=== PATIENT | female | born 1990 | race African-American/Black ===

== ENCOUNTER → 2016-05-18 | Day surgery (SDC) | payer BC ==
[~2016-05-18] VITALS: Ht 175.3 cm; Wt 107.4 kg
[~2016-05-18] MED LIST: *ONDANSETRON 4 MG VIAL PERIprocedural Use ONLY ONE; *PROMETHAZINE 25 MG/ML VIAL PERIprocedural use ONLY ONE; *morphine SULFATE 8 MG/ML PERIprocedure ONLY ONE; DEXAMETHASONE SOD PHOS 4 MG/ML VIAL ONE; DO NOT ADM ANY ANTICOAGULANT DRUGS XX PRN; FAMOTIDINE 20 MG/2 ML VIAL ONE; HYDR-3516 PO; HYDROmorphone HCL PF 1 MG/ML VIAL IVP PRN; IBUPROFEN 600 MG TAB PO PRN; INSULIN HUMAN REGULAR 1,000 UNITS/10 ML VIAL SQ PRN; KETOROLAC TROMETHAMINE 30 MG/ML (IVP) VIAL IVP PRN; LACTATED RINGER'S 1000 ML INJ 1,000 ML IV SCH; LACTATED RINGER'S 1000 ML IV SCH; LORazepam 0.5 MG TAB PO PRN; METHYLERGONOVINE MALEATE 0.2 MG/ML VIAL IM ONE; METOCLOPRAMIDE HCL 10 MG/2 ML VIAL ONE; METOPROLOL TARTRATE 25 MG TAB PO PRN; MIDAZOLAM HCL 2 MG/2 ML VIAL ONE; ONDANSETRON HCL 4 MG/2 ML VIAL IV PUSH ONE; ONDANSETRON HCL 4 MG/2 ML VIAL IVP PRN; ONDANSETRON HCL 4 MG/2 ML VIAL ONE; OXYTOCIN 10 UNIT/ML AMP ONE; PROMETHAZINE INJ 25 MG/ML VIAL IM PRN; PROPOFOL 200 MG/20 ML AMP IV ONE; SODIUM CHLORID 0.9% 500 ML IV SCH; SODIUM CHLORIDE 0.9% FLUSH 5 ML FLUSH FLUSH PRN; SODIUM CHLORIDE 0.9% FLUSH 5 ML FLUSH FLUSH SCH; ceFAZolin 2 GM PREMIX 50 ML IV SCH; diphenhydrAMINE HCL 25 MG CAP PO PRN; oxyCODONE/ACETAMINOPHEN 5 MG/325 MG TAB PO PRN
[2016-05-18 09:14] VITALS: BP 134/80; PULSE 76; RESP 16; TEMP 98.6; O2SAT 100
[2016-05-18 09:59] LABS: AUTOMATED NEUTROPHIL # 3.2 TH/MM3 (1.8-7.7); BASOPHIL % 0.4 % (0.0-2.0); EOSINOPHIL % 0.3 % (0.0-4.0); HEMATOCRIT 36.2 % (35.0-46.0); HEMO FLAGS DIFF FINAL; LYMPH % 28.9 % (9.0-44.0); LYMPHOCYTE # 1.6 TH/MM3 (1.0-4.8); MEAN CELL VOLUME 82.1 FL (80.0-100.0); MEAN CORPUSCULAR HEMOGLOBIN 27.2 PG (27.0-34.0); MEAN CORPUSCULAR HGB CONC 33.1 % (32.0-36.0); MONO % 9.9 % (0.0-8.0); NEUT % 60.5 % (16.0-70.0); PLATELET COUNT 212 TH/MM3 (150-450); RED CELL DISTRIBUTION WIDTH 14.5 % (11.6-17.2); WHITE BLOOD COUNT 5.4 TH/MM3 (4.0-11.0)
[2016-05-18 13:09] VITALS: BP 116/65; PULSE 87; RESP 18; TEMP 97.6; O2SAT 100
--- NOTE | 2016-05-19 13:36 | MP ---
cc: TOM ALONZO M.D.,HIREN Lema M.D. DATE OF PROCEDURE 05/18/2016 PREOPERATIVE DIAGNOSES 1. Patient with missed at 8 weeks gestation. 2. History of recurrent loss, miscarriage. PROCEDURE D&C with suction. POSTOPERATIVE DIAGNOSES 1. Patient with missed at 8 weeks gestation. 2. History of recurrent loss, miscarriage. MATERNAL BLOOD TYPE O-positive. ANESTHESIA General with LMA. ESTIMATED BLOOD LOSS 50 cc. PATHOLOGY SPECIMEN Products of conception. INDICATIONS FOR PROCEDURE Patient with known documented intrauterine that failed to progress. The patient was approximately 8 weeks. The patient elected for D&C with suction. The patient's maternal blood type is O-positive. PROCEDURE The patient received Ancef 2 grams prior to the procedure. She underwent general anesthesia with LMA placement. She was carefully positioned in dorsal lithotomy position using candy-cane stirrups. She had appropriate padding for her lower extremities, she had sequentials placed on lower extremities for VTE prophylaxis. She was prepped and draped, a time-out was conducted and agreed by all present in the room. Simple bivalve retractor was used to examine the cervix which was midline. No active bleeding was noted. The uterus was retroverted, measuring about 8 cm. The cervix was then dilated to accommodate a #10 curved curette. The curette was used on a suction canister device and evacuation of the endometrial cavity. Complete removal of tissue was noted. A simple handheld curette was used to confirm evacuation of the contents. The patient received Methergine 0.2 mg IM at the completion of the procedure. Blood loss was minimal. At the completion of the case final count was correct. The patient was stable. She was taken to the recovery room on room air. MD DEAN Valencia/VIVEK /11:50 AM /1:24 PM
== END | disposition home or self-care (01) ==
LOC: HSDC 08:11
PROVIDERS: ATTEND Obstetrics & Gynecology
DX: O02.1 Missed abortion (principal)
CPT/HCPCS: 01965; 59820; 85025; 86850; 86900; 86901; 88305; J0690; J1100; J1885; J2210; J2250; J2270; J2405; J2550; J2765; J3010; J7120; J2590

== ENCOUNTER 2017-08-09 18:05 | Emergency (ER) | payer BC ==
[~2017-08-09] VITALS: Ht 175.3 cm; Wt 110.0 kg
[~2017-08-09 18:05] MED LIST changes: -*ONDANSETRON 4 MG VIAL PERIprocedural Use ONLY ONE; -*PROMETHAZINE 25 MG/ML VIAL PERIprocedural use ONLY ONE; -*morphine SULFATE 8 MG/ML PERIprocedure ONLY ONE; -DEXAMETHASONE SOD PHOS 4 MG/ML VIAL ONE; -DO NOT ADM ANY ANTICOAGULANT DRUGS XX PRN; -FAMOTIDINE 20 MG/2 ML VIAL ONE; -HYDROmorphone HCL PF 1 MG/ML VIAL IVP PRN; -IBUPROFEN 600 MG TAB PO PRN; -INSULIN HUMAN REGULAR 1,000 UNITS/10 ML VIAL SQ PRN; -KETOROLAC TROMETHAMINE 30 MG/ML (IVP) VIAL IVP PRN; -LACTATED RINGER'S 1000 ML INJ 1,000 ML IV SCH; -LACTATED RINGER'S 1000 ML IV SCH; -LORazepam 0.5 MG TAB PO PRN; -METHYLERGONOVINE MALEATE 0.2 MG/ML VIAL IM ONE; -METOCLOPRAMIDE HCL 10 MG/2 ML VIAL ONE; -METOPROLOL TARTRATE 25 MG TAB PO PRN; -MIDAZOLAM HCL 2 MG/2 ML VIAL ONE; -ONDANSETRON HCL 4 MG/2 ML VIAL IV PUSH ONE; -ONDANSETRON HCL 4 MG/2 ML VIAL IVP PRN; -ONDANSETRON HCL 4 MG/2 ML VIAL ONE; -OXYTOCIN 10 UNIT/ML AMP ONE; -PROMETHAZINE INJ 25 MG/ML VIAL IM PRN; -PROPOFOL 200 MG/20 ML AMP IV ONE; -SODIUM CHLORID 0.9% 500 ML IV SCH; -SODIUM CHLORIDE 0.9% FLUSH 5 ML FLUSH FLUSH PRN; -SODIUM CHLORIDE 0.9% FLUSH 5 ML FLUSH FLUSH SCH; -ceFAZolin 2 GM PREMIX 50 ML IV SCH; -diphenhydrAMINE HCL 25 MG CAP PO PRN; -oxyCODONE/ACETAMINOPHEN 5 MG/325 MG TAB PO PRN
[2017-08-09 18:23] VITALS: BP 133/89; PULSE 110; RESP 16; TEMP 99; O2SAT 100
[2017-08-09] MEDS ORDERED: SODIUM CHLOR 0.9% 1000 ML INJ 1,000 ML IV ONE (20:45)
[2017-08-09] MEDS ORDERED: METOCLOPRAMIDE INJ 10 MG in SODIUM CHLORIDE 0.9% INJ 50 ML IV ONE (20:45)
--- NOTE | 2017-08-09 21:02 | PD ---
HPI Chief Complaint: Related Problem Time Seen by Provider: 20:19 Travel History International Travel<30 days: No Contact w/Intl Traveler<30days: No Traveled to known affect area: No History of Present Illness HPI 27yo F who is and 7weeks presents to the ED with c/o nausea and vomiting. Pt said she called Dr. Lance and was told to come to the ED for IVF. Pt has been vomiting her whole and is on lovenox and progesterone because she had multiple miscarriages and had work up that she has something that increase her chance of blood clot. Pt denies any fever, chest pain, sob, abdominal pain, dysuria, hematuria, vaginal bleeding, focal weakness or numbness. Pt is on phenergan for nausea and last dose was yesterday. Pt had US this that showed intrauterine at 5weeks. PFSH Past Medical History Cancer: No Cardiovascular Problems: No Diabetes: No Endocrine: No Genitourinary: No Hepatitis: No Hiatal Hernia: No Immune Disorder: No Musculoskeletal: No Neurologic: No Psychiatric: No Reproductive: No Respiratory: No Thyroid Disease: No ?: Past Surgical History AICD: No Body Medical Devices: NONE PER PT Gynecologic Surgery: Yes (D/C) Joint Replacement: No Pacemaker: No Social History Alcohol Use: No Tobacco Use: No Substance Use: No Allergies-Medications (Allergen,Severity, Reaction): Coded Allergies: No Known Allergies (Unverified , 05/18/16) Reported Meds & Prescriptions Reported Meds & Active Scripts Active Reported Hydrocodone-Acetaminophen 5-325 mg Tab 1 Tab PO Q4H PRN Review of Systems Except as stated in HPI: all other systems reviewed are Neg Physical Exam Narrative GENERAL: 27yo F not in distress. SKIN: Focused skin assessment warm/dry. HEAD: Atraumatic. Normocephalic. EYES: Pupils equal and round. No scleral icterus. No injection or drainage. ENT: No nasal bleeding or discharge. Mucous membranes pink and moist. NECK: Trachea midline. No JVD. CARDIOVASCULAR: Regular rate and rhythm. No murmur appreciated. RESPIRATORY: No accessory muscle use. Clear to auscultation. Breath sounds equal bilaterally. GASTROINTESTINAL: Abdomen soft, non-tender, nondistended. No rebound tenderness or guarding. MUSCULOSKELETAL: No obvious deformities. No clubbing. No cyanosis. No edema. NEUROLOGICAL: Awake and alert. No obvious cranial nerve deficits. Motor grossly within normal limits. Normal speech. PSYCHIATRIC: Appropriate mood and affect; insight and judgment normal. Data Data Last Documented VS Vital Signs Date Time Temp Pulse Resp B/P (MAP) Pulse Ox O2 Delivery O2 Flow Rate FiO2 08/09/17 22:27 90 08/09/17 18:23 99.0 16 133/89 (104) 100 Orders Orders Basic Metabolic Panel (Bmp) (08/09/17 20:38) Urinalysis - C+S If Indicated (08/09/17 20:38) Ed Poc Ultrasound (08/09/17 ) Metoclopramide Inj (Reglan Inj) (08/09/17 20:45) Sodium Chlor 0.9% 1000 Ml Inj (Ns 1000 M (08/09/17 20:45) Ed Poc Ultrasound (08/09/17 ) Labs Laboratory Tests Test 08/09/17 21:00 08/09/17 21:20 Blood Urea Nitrogen 8 MG/DL Creatinine 0.86 MG/DL Random Glucose 86 MG/DL Calcium Level 9.2 MG/DL Sodium Level 139 MEQ/L Potassium Level 3.8 MEQ/L Chloride Level 104 MEQ/L Carbon Dioxide Level 24.3 MEQ/L Anion Gap 11 MEQ/L Estimat Glomerular Filtration Rate 94 ML/MIN Urine Color YELLOW Urine Turbidity CLEAR Urine pH 5.5 Urine Specific [place] 1.036 Urine Protein 30 mg/dL Urine Glucose (UA) NEG mg/dL Urine Ketones TRACE mg/dL Urine Occult Blood NEG Urine Nitrite NEG Urine Bilirubin NEG Urine Urobilinogen LESS THAN 2.0 MG/DL Urine Leukocyte Esterase NEG Urine WBC 5 /hpf Urine Squamous Epithelial Cells <1 /hpf Urine Mucus MANY /lpf Microscopic Urinalysis Comment CULT NOT INDICATED MDM Medical Decision Making Medical Screen Exam Complete: Yes Emergency Medical Condition: Yes Differential Diagnosis Hyperemesis gravidarum vs. UTI vs. dehydration vs. electrolyte abnormality Narrative Course 27yo F sent here by OBGYN for IV hydration after she complained of persistent nausea dn vomiting. Pt is well appearing and has no abdominal pain. BMP reviewed, unremarkable. UA showed trace ketones. Negative leukocyte. WBC 5. Culture not indicated. Pt given reglan and NS IVF. Pt reevaluated at bedside and feels better. Pt is now tolerating PO. Pt already has phenergan at home and prefers that so will have pt continue taking it. Procedures Procedure Narrative Emergency Department Pelvic ultrasound was performed with patient consent. The curvilinear probe was used in the transverse and sagittal views within the suprapubic region revealing single intrauterine . heart rate was 169bpm. Diagnosis Primary Impression: Vomiting affecting Patient Instructions: General Instructions Departure Forms: Tests/Procedures Additional Instructions: Please follow up with your OBGYN in 1-2 days. Return to the ED if symptoms worsen. Med/Other Pt SpecificInfo: No Change to Meds Disposition: 01 DISCHARGE HOME Condition: Stable BedollaReginaMonica DO August 09, 2017 21:02
[2017-08-09 21:37] LABS: BILIRUBIN, URINE NEG (NEG); BLOOD, URINE NEG (NEG); GLUCOSE,URINE NEG (NEG); KETONE, URINE TRACE mg/dL (NEG); MUCUS URINE MANY /lpf (OCC); NITRITE,URINE NEG (NEG); PH, URINE 5.5 (5.0-8.5); SQUAMOUS EPITHELIAL CELL URINE <1 /hpf (0-5); URINE COLOR YELLOW (YELLW/STRAW); URINE LEUKOCYTE ESTERASE NEG (NEG)
[2017-08-09 21:38] LABS: BICARBONATE 24.3 MEQ/L (21.0-32.0); CALCIUM 9.2 MG/DL (8.5-10.1); CREATININE 0.86 MG/DL (0.50-1.00)
[2017-08-09 22:27] VITALS: PULSE 90
== END 2017-08-09 23:25 | disposition home or self-care (01) ==
LOC: NEPD 18:05
DX: O21.9 Vomiting of pregnancy, unspecified (principal); Z3A.01 Less than 8 weeks gestation of pregnancy
CPT/HCPCS: 80048; 81001; 96374; 99283; J2765; J7030

== ENCOUNTER 2017-08-17 12:01 | Emergency (ER) | payer BC ==
[2017-08-17 12:08] VITALS: BP 157/78; PULSE 95; RESP 18; TEMP 99; O2SAT 99
[2017-08-17] MEDS ORDERED: SODIUM CHLOR 0.9% 1000 ML INJ 1,000 ML IV SCH (13:22)
[2017-08-17] MEDS ORDERED: SODIUM CHLORIDE 0.9% FLUSH 10 ML FLUSH IV FLUSH PRN (13:30)
--- NOTE | 2017-08-17 14:10 | PD ---
HPI Chief Complaint: GI Complaint Time Seen by Provider: 13:22 Travel History International Travel<30 days: No Contact w/Intl Traveler<30days: No Traveled to known affect area: No History of Present Illness HPI 27-year-old proximally 9-1/2 weeks female presents the ED for evaluation of nausea and vomiting. Sustained during the course of her . Patient states that she has been taking Phenergan at home but has been unable to keep anything down. She spoke to her cylinder filler who was concerned for dehydration and sent her to the emergency room. She is taking Phenergan at home, last dose yesterday. She denies any abdominal pain, vaginal bleeding or vaginal discharge. She had outpatient ultrasound 2 days ago that revealed intrauterine , active with a heartbeat in the 170s. She is taking progesterone and Lovenox due to multiple miscarriages. She states that she had lab work that showed "increased risk of blood clot." She is followed by Dr. Lance. [facility] Past Medical History Cancer: No Cardiovascular Problems: No Diabetes: No Diminished Hearing: No Endocrine: No Genitourinary: No Hepatitis: No Hiatal Hernia: No Immune Disorder: No Musculoskeletal: No Neurologic: No Psychiatric: No Reproductive: No Respiratory: No Thyroid Disease: No ?: Para: 4 Miscarriage: 3 Past Surgical History AICD: No Body Medical Devices: NONE PER PT Gynecologic Surgery: Yes (D/C) Joint Replacement: No Pacemaker: No Other Surgery: Yes Social History Alcohol Use: No Tobacco Use: No Substance Use: No Allergies-Medications (Allergen,Severity, Reaction): Coded Allergies: No Known Allergies (Verified Adverse Reaction, Unknown, 08/17/17) Reported Meds & Prescriptions Reported Meds & Active Scripts Active Reported Hydrocodone-Acetaminophen 5-325 mg Tab 1 Tab PO Q4H PRN Review of Systems Except as stated in HPI: all other systems reviewed are Neg Physical Exam Narrative GENERAL: Well-nourished, well-developed nontoxic-appearing -[place] female no acute distress.. SKIN: Focused skin assessment warm/dry. Mucous membranes moist. HEAD: Normocephalic. EYES: No scleral icterus. No injection or drainage. NECK: Supple, trachea midline. No JVD or lymphadenopathy. CARDIOVASCULAR: Regular rate and rhythm without murmurs, gallops, or rubs. RESPIRATORY: Breath sounds clear and equal bilaterally. No accessory muscle use. GASTROINTESTINAL: Abdomen soft, non-tender, nondistended. Active bowel sounds. MUSCULOSKELETAL: No cyanosis, or edema. BACK: Nontender without obvious deformity. No CVA tenderness. Data Data Last Documented VS Vital Signs Date Time Temp Pulse Resp B/P (MAP) Pulse Ox O2 Delivery O2 Flow Rate FiO2 08/17/17 17:11 08/17/17 15:18 90 18 99 Room Air 08/17/17 12:08 99.0 Orders Orders Basic Metabolic Panel (Bmp) (08/17/17 13:22) Complete Blood Count With Diff (08/17/17 13:22) Urinalysis - C+S If Indicated (08/17/17 13:22) Iv Access Insert/Monitor (08/17/17 13:22) Ecg Monitoring (08/17/17 13:22) Oximetry (08/17/17 13:22) Sodium Chlor 0.9% 1000 Ml Inj (Ns 1000 M (08/17/17 13:22) Sodium Chloride 0.9% Flush (Ns Flush) (08/17/17 13:30) Promethazine (Phenergan) (08/17/17 14:15) Coag Profile (08/17/17 14:35) Heart Tones (08/17/17 14:44) Ed Poc Ultrasound (08/17/17 ) Ed Discharge Order (08/17/17 16:49) Labs Laboratory Tests Test 08/17/17 14:00 08/17/17 15:50 White Blood Count 8.5 TH/MM3 Red Blood Count 4.84 MIL/MM3 Hemoglobin 13.5 GM/DL Hematocrit 41.3 % Mean Corpuscular Volume 85.4 FL Mean Corpuscular Hemoglobin 27.9 PG Mean Corpuscular Hemoglobin Concent 32.7 % Red Cell Distribution Width 13.9 % Platelet Count 233 TH/MM3 Mean Platelet Volume 8.6 FL Neutrophils (%) (Auto) 70.9 % Lymphocytes (%) (Auto) 21.8 % Monocytes (%) (Auto) 6.9 % Eosinophils (%) (Auto) 0.1 % Basophils (%) (Auto) 0.3 % Neutrophils # (Auto) 6.0 TH/MM3 Lymphocytes # (Auto) 1.8 TH/MM3 Monocytes # (Auto) 0.6 TH/MM3 Eosinophils # (Auto) 0.0 TH/MM3 Basophils # (Auto) 0.0 TH/MM3 CBC Comment DIFF FINAL Differential Comment Blood Urea Nitrogen 7 MG/DL Creatinine 0.68 MG/DL Random Glucose 81 MG/DL Calcium Level 8.6 MG/DL Sodium Level 137 MEQ/L Potassium Level 3.7 MEQ/L Chloride Level 104 MEQ/L Carbon Dioxide Level 21.6 MEQ/L Anion Gap 11 MEQ/L Estimat Glomerular Filtration Rate 124 ML/MIN Prothrombin Time 10.7 SEC Prothromb Time International Ratio 1.1 RATIO Activated Partial Thromboplast Time 25.3 SEC Urine Color YELLOW Urine Turbidity CLEAR Urine pH 5.5 Urine Specific [place] 1.036 Urine Protein 30 mg/dL Urine Glucose (UA) NEG mg/dL Urine Ketones 150 mg/dL Urine Occult Blood NEG Urine Nitrite NEG Urine Bilirubin NEG Urine Urobilinogen 2.0 MG/DL Urine Leukocyte Esterase NEG Urine RBC LESS THAN 1 /hpf Urine WBC 2 /hpf Urine Squamous Epithelial Cells 1 /hpf Urine Mucus MANY /lpf Microscopic Urinalysis Comment CULT NOT INDICATED MDM Medical Decision Making Medical Screen Exam Complete: Yes Emergency Medical Condition: Yes Differential Diagnosis Dehydration versus metabolic derangement versus hyper emesis gravidarum versus vomiting in versus other Narrative Course 27-year-old proximally 9-1/2 weeks female presents the ED for evaluation of nausea and vomiting. Sustained during the course of her . She spoke to her cylinder filler who was concerned for dehydration and sent her to the emergency room. She is taking Phenergan at home, last dose yesterday. She denies any abdominal pain, vaginal bleeding or vaginal discharge. She is taking progesterone and Lovenox due to multiple miscarriages. She states that she had lab work that showed "increased risk of blood clot." She is followed by Dr. Lance. Vitals reviewed. On exam this is a nontoxic-appearing -[place] female no acute distress. Physical exam is unremarkable. Bedside ultrasound reveals single intrauterine with heart rate of 174. IV was established. 1 L normal saline and Phenergan were ordered. Prior to this patient was noted to be eating [place]an fries in the exam room with her . CBC, CMP, coags and UA all without concerning abnormalities. On recheck patient reports improvement of her symptoms. She is instructed to follow-up with her cylinder filler. She is agreeable to care plan. She is stable and discharged home. Procedures Procedure Narrative Emergency Department Pelvic ultrasound was performed with patient consent. The curvilinear probe was used in the transverse and sagittal views within the suprapubic region revealing single intrauterine . heart rate was 174. Diagnosis Primary Impression: Vomiting affecting Referrals: Sericulturist Additional Instructions: Continue at home medications as previously prescribed. Follow up with your cylinder filler next week. Return to the ED for worsening symptoms or any urgent or emergent medical condition. Disposition: 01 DISCHARGE HOME Condition: Stable Vianey Santana August 17, 2017 14:10
[2017-08-17] MEDS ORDERED: PROMETHAZINE HCL 25 MG TAB PO ONE (14:15)
[2017-08-17 14:45] LABS: BASOPHIL % 0.3 % (0.0-2.0); EOSINOPHIL % 0.1 % (0.0-4.0); HEMATOCRIT 41.3 % (35.0-46.0); HEMOGLOBIN 13.5 GM/DL (11.6-15.3); LYMPH % 21.8 % (9.0-44.0); LYMPHOCYTE # 1.8 TH/MM3 (1.0-4.8); MEAN CELL VOLUME 85.4 FL (80.0-100.0); MEAN CORPUSCULAR HEMOGLOBIN 27.9 PG (27.0-34.0); MEAN CORPUSCULAR HGB CONC 32.7 % (32.0-36.0); MEAN PLATELET VOLUME 8.6 FL (7.0-11.0); MONO % 6.9 % (0.0-8.0); MONOCYTE # 0.6 TH/MM3 (0-0.9); NEUT % 70.9 % (16.0-70.0); PLATELET COUNT 233 TH/MM3 (150-450); RED BLOOD COUNT 4.84 MIL/MM3 (4.00-5.30); RED CELL DISTRIBUTION WIDTH 13.9 % (11.6-17.2); WHITE BLOOD COUNT 8.5 TH/MM3 (4.0-11.0)
[2017-08-17 14:56] LABS: BICARBONATE 21.6 MEQ/L (21.0-32.0); CALCIUM 8.6 MG/DL (8.5-10.1); CREATININE 0.68 MG/DL (0.50-1.00)
[2017-08-17 15:18] VITALS: BP 150/70; PULSE 90; RESP 18; O2SAT 99
[2017-08-17 16:40] LABS: BILIRUBIN, URINE NEG (NEG); BLOOD, URINE NEG (NEG); GLUCOSE,URINE NEG (NEG); KETONE, URINE 150 mg/dL (NEG); MUCUS URINE MANY /lpf (OCC); NITRITE,URINE NEG (NEG); PH, URINE 5.5 (5.0-8.5); SQUAMOUS EPITHELIAL CELL URINE 1 /hpf (0-5); URINE COLOR YELLOW (YELLW/STRAW); URINE LEUKOCYTE ESTERASE NEG (NEG)
[2017-08-17 16:43] LABS: INTERNATIONAL NORMALIZED RATIO 1.1 RATIO; PROTHROMBIN TIME - PATIENT 10.7 SEC (9.8-11.6)
== END 2017-08-17 17:17 | disposition home or self-care (01) ==
LOC: NEPD 12:01
DX: O21.9 Vomiting of pregnancy, unspecified (principal); Z3A.09 9 weeks gestation of pregnancy
CPT/HCPCS: 80048; 81001; 85025; 85610; 85730; 96360; 99284; J7030; Q0169

== ENCOUNTER 2018-03-13 07:59 | Inpatient (IN) ==
--- NOTE | 2018-03-13 08:41 | P.OBGPN ---
S: Doing well, no pain, denies headaches, blurry vision, epigastric pain or right upper quadrant pain O: : Cervix 4-5 cm, 50% effaced, -3 station FHTs: 140s, moderate variability, accelerations TOCO: No contractions noted A/P: 27-year-old at 39 weeks and 0 days for induction of labor secondary to elevated blood pressures at term 1. IUP: cat 1 tracing - cephalic by exam, EFW 7.5lbs, female fetus "Journi" - GBS POS 2. IOL: Secondary to #3, phthisis or favorable, begin Pitocin, AROM later. Anticipate 3. CHTN / new elevated blood pressures: Mild range and office yesterday, mild range this morning, no signs or symptoms of preeclampsia, will collect HELLP labs and P: C ratio, continue to try blood pressures. Will mag if develops severe features. - Patient states was diagnosed with chronic hypertension many years ago and has been off medication after weight loss and exercise for several years. BPs all this until yesterday have been normal 4. GBS POS: begin penicillin for prophylaxis.
[2018-03-13] MEDS ORDERED: Penicillin G Potassium Inj 5,000,000 UNIT in Sodium Chloride 0.9% Inj 100 ML IV.SIG ONE (08:46)
[2018-03-13] MEDS ORDERED: Sodium Chlor 0.9% Inj 500 ML IV.SIG PRN (08:46)
[2018-03-13] MEDS ORDERED: Oxytocin 30 Units/500ml Premix 30 UNITS/500 ML BAG IV.SIG ONE (08:46)
[2018-03-13] MEDS ORDERED: Naloxone Inj 0.4 MG/ML Vial IV.PUSH PRN ×2 (08:46→16:01)
[2018-03-13] MEDS ORDERED: fentaNYL Citrate Inj 100 MCG/2 ML Ampul IV.PUSH PRN ×2 (08:46)
[2018-03-13] MEDS ORDERED: Oxytocin 30 Units/500ml Premix 30 UNITS/500 ML BAG IV.SIG PRN (08:46)
[2018-03-13] MEDS ORDERED: Sod Chloride 0.9% Inj 1,000 ML IV.CONT PRN (08:46)
[2018-03-13] MEDS ORDERED: Citric Acid/Sodium Citrate Liq 30 ML UDC PO SCH (09:00)
[2018-03-13 09:21] LABS: Baso % (Auto) 0.2 % (0.0-2.0); Eos % (Auto) 0.4 % (0.0-4.0); Hematocrit 33.7 % (35.0-46.0); Hemoglobin 11.1 gm/dL (11.6-15.3); Lymph # (Auto) 1.7 th/mm3 (1.0-4.8); Lymph % (Auto) 18.7 % (9.0-44.0); Mean Corpuscular HGB Conc 32.8 % (32.0-36.0); Mean Corpuscular Hemoglobin 26.8 pg (27.0-34.0); Mean Corpuscular Volume 81.7 fL (80.0-100.0); Mono # (Auto) 0.9 th/mm3 (0.0-0.9); Mono % (Auto) 9.8 % (0.0-8.0); Neut # (Auto) 6.4 th/mm3 (1.8-7.7); Neut % (Auto) 70.9 % (16.0-70.0); Platelet Count 202 th/mm3 (150-450); Red Blood Count 4.13 mil/mm3 (4.00-5.30); Red Cell Distribution Width 14.7 % (11.6-17.2); White Blood Count 9.1 th/mm3 (4.0-11.0)
[2018-03-13 09:30] LABS: Bilirubin,Urine Negative (Negative); Clarity,Urine Clear (Clear); Color,Urine Yellow (Yellw/Straw); Glucose,Urine (UA) Negative (Negative); Leukocyte Esterase,Urine Negative (Negative); Mucus,Urine Few /lpf (Occasional); Nitrite,Urine Negative (Negative); Specific Gravity,Urine 1.008 (1.002-1.035); Squamous Epithelial Cell,Urine <1 /hpf (0-5)
--- NOTE | 2018-03-13 09:32 | MH ---
cc: Georgian Spence MD DATE OF ADMISSION: 03/13/2018 INDICATION FOR ADMISSION: A 39-week intrauterine with mildly elevated blood pressures, mild headache, 4 cm, admitted for Pitocin and AROM. HISTORY OF PRESENT CONDITION: The patient is a very pleasant 27-year-old, , black female, 4, para 0-0-3-0, with LMP 06/13/2017 and EDC 03/20/2018, currently at 39 and 0/7 weeks. She was seen in the office by me yesterday with a mild headache and blood pressure of 122/88. She was 4 cm, 50% effaced, and -1. Estimated weight is 7 pounds. Pelvis is clinically adequate. She denied nausea, vomiting, blurred vision. She was having good movement. surveillance has been reassuring. She had no leakage or bleeding. care was entirely with Dr. Lance and overall unremarkable. She had several losses prior to this conception. Blood type O positive, hemoglobin 12.3. Pap smear normal. Immune to [place] measles and chickenpox. Serology negative. Thyroid test normal. Her Glucola was unremarkable, but she is group B strep positive FAMILY HISTORY: Noncontributory. SOCIAL HISTORY: She works at [employer] in the [facility]. Does not smoke, drink, or use illicit drugs. PHYSICAL EXAMINATION: GENERAL: She is a well-developed female in no acute distress other than a mild headache. VITAL SIGNS: Her weight is 272. Her blood pressure was 128/88. NECK: She had no thyroid enlargement. LUNGS: Clear. HEART: Regular. PELVIC: Fundus is term. Cervix as described. EXTREMITIES: She had mild edema normal reflexes. IMPRESSION AND PLAN: A 39-week intrauterine with mild elevations in blood pressure, highly favorable Tom score. Plan is to proceed with Pitocin, AROM once penicillin G is in place. Do preeclamptic labs and watch blood pressures. Anticipate vaginal delivery. Both Dr. Elliott and Dr. Lance are aware. Georgina Spence MD PPC/rs , 08:49 AM , 08:59 AM
[2018-03-13 09:35] LABS: Amphetamine Urine With Conf Neg (Neg); Benzodiazepine Urine With Conf Neg (Neg); Cocaine Urine With Conf Neg (Neg); Opiates Urine With Conf Neg (Neg)
[2018-03-13 09:36] LABS: Protein/Creatinine Ratio,Urine 0.13 (0.00-0.14)
[2018-03-13 09:39] LABS: Albumin 2.6 g/dL (3.4-5.0); Anion Gap 9 meq/L (5-15); Aspartate Aminotransferase 22 U/L (15-37); Blood Urea Nitrogen 4 mg/dL (7-18); Calcium 8.3 mg/dL (8.5-10.1); Carbon Dioxide 20.1 meq/L (21.0-32.0); Chloride 109 meq/L (98-107); Glomerular Filtration Rate Greater Than 89 mL/min (>89); Glucose,Random 74 mg/dL (74-106); Potassium 3.5 meq/L (3.5-5.1); Sodium 138 meq/L (136-145)
[2018-03-13 09:40] LABS: Alanine Aminotransferase 20 U/L (10-53)
[2018-03-13 09:42] LABS: Alkaline Phosphatase 207 U/L (45-117); Total Protein 6.8 g/dL (6.4-8.2)
[2018-03-13 09:50] LABS: Cannabinoid Urine With Conf Neg (Neg)
--- NOTE | 2018-03-13 10:25 | P.HPOB ---
History of Present Illness Service: labor and delivery Primary Care Physician: No Primary Care Physician Chief Complaint: labor History of Present Illness: Rin is a 27 year old mbf at 39 and 0/7 weeks gestation s/p episode of bleeding from a LT labial "bump" yesterday. Cervix is noted to be 3-4 cm/50% effaced/-2 station. BP's high with diastolic in the 80's. +1 proteinuria. GFM without bleeding or n/v or discharge. FHR was 160's yesterday. GBS+. Weeks Gestation:: 39 Para: 3 : 4 Last menstrual period: 06/13/17 - Inpatient Certification I certify that the inpatient services were ordered in accordance with Medicare regulations governing the order. This includes certification that hospital inpatient services are reasonable and necessary and in the case of services not specified as inpatient-only under 42 CFR 419.22(n), that they are appropriately provided as inpatient services in accordance to with the 2-midnight benchmark under 43 CFR 412.3(e) Estimated Total Length of Stay (Days): 3 Plans for Post Hospital Care: Home [facility] - Surgical History Surgical History: Surgical History (Last Updated 03/11/18 @ 23:45 by Fred Cortez MD) History of dilation and curettage - Tobacco History Smoking Status: Never smoker - Alcohol History How Often Do You Have a Drink Containing Alcohol: Never - Substance Use History Substance History: No History of Abuse - Travel History History of Recent Travel: No Recent Travel in the [place] Within the Last 8 Weeks: No Recent Travel Out of the Country Within the Last 8 Weeks: No Medications and Allergies Allergies Allergy/AdvReac Type Severity Reaction Status Date / Time No Known Allergies Allergy Verified 03/13/18 08:57 Home Medications Medication Instructions Recorded Confirmed Type PNV cmb#95-ferrous fumarate-FA 1 tab PO DAILY 03/11/18 03/13/18 History [] Active Medications: Active Medications Calcium Gluconate (Calcium Gluconate Inj) 1 gm IV.PUSH PRN PRN PRN Reason: Magnesium toxicity Citric Acid/Sodium Citrate (Sodium Citrate/Citric Acid Liq) 30 ml PO [employer] VANDANA Stop: 03/17/18 08:59 Fentanyl Citrate (Fentanyl Inj) 50 mcg IV.PUSH Q1H PRN PRN Reason: Pain Scale 3 - 5 Fentanyl Citrate (Fentanyl Inj) 100 mcg IV.PUSH Q1H PRN PRN Reason: PAIN SCALE 6 TO 10 Lactated Ringer's (Lr 1000 Ml Inj) 1,000 mls @ 125 mls/hr IV.CONT .Q8H VANDANA Last Admin: 03/13/18 09:24 Dose: 125 mls/hr Lactated Ringer's (Lr 1000 Ml Inj) 1,000 mls @ 75 mls/hr IV.CONT .[id number] VANDANA Sodium Chloride (Ns Inj) 500 mls @ 1,000 mls/hr IV.SIG UNSCH PRN PRN Reason: SEE LABEL COMMENTS Sodium Chloride (Ns Inj) 1,000 mls @ 100 mls/hr IV.CONT .Q10H PRN PRN Reason: SEE LABEL COMMENTS Oxytocin (Pitocin 30 Units/Ns 500 Ml Premix) 30 units in 500 mls @ 2 mls/hr IV.SIG TITRATE PRN; Protocol PRN Reason: For induction of labor Last Admin: 03/13/18 09:38 Dose: 2 milliunit/min, 2 mls/hr Penicillin G Potassium 2,500, (000 unit/ Sodium Chloride) 100 mls @ 200 mls/hr IV.SIG Q4H VANDANA Lactated Ringer's (Lr 1000 Ml Inj) 1,000 mls @ 3,000 mls/hr IV.SIG UNSCH PRN PRN Reason: compromise or epidural Lidocaine HCl (Xylocaine 1% Inj) 0.1 ml I-DERMAL PRN PRN PRN Reason: For IV start Stop: 03/16/18 08:45 Lidocaine HCl (Xylocaine 1% Inj) 10 ml INFILTRATN PRN PRN PRN Reason: For episiotomy repair Stop: 03/15/18 08:45 Mineral Oil (Muri-Lube Oil) 10 ml TOPICAL PRN PRN PRN Reason: PRN perineal massage Naloxone HCl (Narcan Inj) 0.1 mg IV.PUSH Q2M PRN PRN Reason: for opiate reversal Ondansetron HCl (Zofran Inj) 4 mg IV.PUSH Q6H PRN PRN Reason: NAUSEA OR VOMITING Sodium Chloride (Ns Flush) 2 ml IV.FLUSH BID VANDANA Sodium Chloride (Ns Flush) 2 ml IV.FLUSH PRN PRN PRN Reason: FLUSH AFTER USING IV ACCESS Exam Vital signs: Vital Signs 03/13/18 08:15 03/13/18 09:15 03/13/18 09:17 Temperature 99.0 F Pulse Rate 97 H Respiratory Rate 18 Blood Pressure 140/85 Intake & Output 03/12/18 03/13/18 03/13/18 18:59 06:59 18:59 Weight 122.924 kg Narrative: FHT 140's with moderate variability, accelerations, and no decelerations. TOCO: 1-2 contractions every 10-15 minutes. Results - Labs CBC & Chem 7: 03/13/18 08:36 03/13/18 08:36 Labs: Laboratory Results - last 24 hr 03/13/18 03/13/18 03/13/18 08:36 08:36 08:36 WBC 9.1 RBC 4.13 Hgb 11.1 L Hct 33.7 L MCV 81.7 MCH 26.8 L MCHC 32.8 RDW 14.7 Plt Count 202 MPV 9.0 Neut % (Auto) 70.9 H Lymph % (Auto) 18.7 [place] % (Auto) 9.8 H Eos % (Auto) 0.4 Baso % (Auto) 0.2 Neut # (Auto) 6.4 Lymph # (Auto) 1.7 [place] # (Auto) 0.9 Eos # (Auto) 0.0 Baso # (Auto) 0.0 WBC Differential . Differential Comment Auto diff final Sodium 138 Potassium 3.5 Chloride 109 H Carbon Dioxide 20.1 L Anion Gap 9 BUN 4 L Creatinine 0.70 Estimated GFR Greater than 89 Random Glucose 74 Calcium 8.3 L Total Bilirubin 0.3 AST 22 ALT 20 Alkaline Phosphatase 207 H Total Protein 6.8 Albumin 2.6 L Urine Color Urine Clarity Urine pH Ur Specific [place] Urine Protein Urine Glucose (UA) Urine Ketones Urine Occult Blood Urine Nitrate Urine Bilirubin Urine Urobilinogen Ur Leukocyte Esterase Urine RBC Urine WBC Ur Squamous Epith Cells Urine Mucus Micro UA Comment Ur Microscopic Review Urine Culture Comments Ur Random Creatinine U Random Total Protein Protein/Creatinin Ratio Urine Opiates Screen Ur Barbiturates Screen Ur Amphetamine Screen U Benzodiazepines Scrn Urine Cocaine Screen U Cannabinoids Screen Blood Type O Positive Blood Type Recheck Not needed Antibody Screen Negative 03/13/18 03/13/18 03/13/18 08:36 08:36 08:36 WBC RBC Hgb Hct MCV MCH MCHC RDW Plt Count MPV Neut % (Auto) Lymph % (Auto) [place] % (Auto) Eos % (Auto) Baso % (Auto) Neut # (Auto) Lymph # (Auto) [place] # (Auto) Eos # (Auto) Baso # (Auto) WBC Differential Differential Comment Sodium Potassium Chloride Carbon Dioxide Anion Gap BUN Creatinine Estimated GFR Random Glucose Calcium Total Bilirubin AST ALT Alkaline Phosphatase Total Protein Albumin Urine Color Yellow Urine Clarity Clear Urine pH 6.0 Ur Specific [place] 1.008 Urine Protein Negative Urine Glucose (UA) Negative Urine Ketones Negative Urine Occult Blood Negative Urine Nitrate Negative Urine Bilirubin Negative Urine Urobilinogen Less than 2 Ur Leukocyte Esterase Negative Urine RBC Less than 1 Urine WBC 1 Ur Squamous Epith Cells <1 Urine Mucus Few H Micro UA Comment Culture not ind Ur Microscopic Review Not Reportable Urine Culture Comments Culture not ind Ur Random Creatinine 111 U Random Total Protein 14.0 H Protein/Creatinin Ratio 0.13 Urine Opiates Screen Neg Ur Barbiturates Screen Neg Ur Amphetamine Screen Neg U Benzodiazepines Scrn Neg Urine Cocaine Screen Neg U Cannabinoids Screen Neg Blood Type Blood Type Recheck Antibody Screen Group B Strep: Positive Caprini VTE Risk Assessment Caprini VTE Risk Assessment: No/Low Risk (score <= 1) Caprini Risk Assessment Model: Point Value = 1 Point Value = 2 Point Value = 3 Point Value = 5 Age 41-60 Minor surgery BMI > 25 kg/m2 Swollen legs Varicose veins or History of unexplained or recurrent spontaneous Oral contraceptives or hormone replacement Sepsis (< 1 month) Serious lung disease, including pneumonia (< 1 month) Abnormal pulmonary function Acute myocardial infarction Congestive heart failure (< 1 month) History of inflammatory bowel disease Medical patient at bed rest Age 61-74 Arthroscopic surgery Major open surgery (> 45 min) Laparoscopic surgery (> 45 min) Malignancy Confined to bed (> 72 hours) Immobilizing plaster cast Central venous access Age >= 75 History of VTE Family history of VTE Factor V Leiden Prothrombin [id number] Lupus anticoagulant Anticardiolipin antibodies Elevated serum homocysteine Heparin-induced thrombocytopenia Other congenital or acquired thrombophilia Stroke (< 1 month) Elective arthroplasty Hip, pelvis, or leg fracture Acute spinal cord injury (< 1 month) Prophylaxis Regimen: Total Risk Factor Score Risk Level Prophylaxis Regimen 0-1 Low Early ambulation 2 Moderate Order ONE of the following: *Sequential Compression Device (SCD) *Heparin 5000 units SQ BID 3-4 Higher Order ONE of the following medications: *Heparin 5000 units SQ TID *Enoxaparin/Lovenox 40 mg SQ daily (WT < 150 kg, CrCl > 30 mL/min) *Enoxaparin/Lovenox 30 mg SQ daily (WT < 150 kg, CrCl > 10-29 mL/min) *Enoxaparin/Lovenox 30 mg SQ BID (WT < 150 kg, CrCl > 30 mL/min) AND/OR *Sequential Compression Device (SCD) 5 or more Highest Order ONE of the following medications: *Heparin 5000 units SQ TID (Preferred with Epidurals) *Enoxaparin/Lovenox 40 mg SQ daily (WT < 150 kg, CrCl > 30 mL/min) *Enoxaparin/Lovenox 30 mg SQ daily (WT < 150 kg, CrCl > 10-29 mL/min) *Enoxaparin/Lovenox 30 mg SQ BID (WT < 150 kg, CrCl > 30 mL/min) AND *Sequential Compression Device (SCD) Assessment and Plan - Plan 1. IUP. - cephalic EFW 7 pounds. expected . - FHT category I. - continue to monitor and evaluate FHT and maternal vitals. 2. Chronic HTN with recent BP elevation. - Denies symptoms of pre-eclampsia. - HELLP labs, P/C ratio normal. Consider rechecking labs today. - If preeclampsia with severe features develops, give Mg. 3. GBS+ - Penicillin 5 million units drip q4h IV. 4. Anemia, likely physiologic. - continue to monitor, consider ferrous sulfate 325 mg PO.
--- NOTE | 2018-03-13 12:18 | P.OBGPN ---
S: Doing well, ctx pain 5/10 denies headaches, blurry vision, epigastric pain or right upper quadrant pain O: : Cervix 5 cm, 50% effaced, -3 station, AROM this check, clear fluid FHTs: 140s, moderate variability, accelerations TOCO: No contractions noted A/P: 27-year-old at 39 weeks and 0 days for induction of labor secondary to elevated blood pressures at term 1. IUP: cat 1 tracing - cephalic by exam, EFW 7.5lbs, female fetus "Journi" - GBS POS 2. IOL: Secondary to #3, s/p AROM this check (1200), continue pit per protocol, anticipate 3. CHTN / new elevated blood pressures: Mild range, no signs or symptoms of preeclampsia, HELLP labs and P:C WNL. Will mag if develops severe features. - Patient states was diagnosed with chronic hypertension many years ago and has been off medication after weight loss and exercise for several years. BPs all this until yesterday have been normal 4. GBS POS: continue penicillin for prophylaxis.
[2018-03-13] MEDS ORDERED: Penicillin G Potassium Inj 2,500,000 UNIT in Sodium Chlor 0.9% Inj 100 ML IV.SIG SCH (12:47)
[2018-03-13] MEDS ORDERED: fentaNYL 2MCG-Bupiv 0.125% Epi 150 ML EPIDURAL ONE (14:00)
[2018-03-13] MEDS: Penicillin G Potassium Inj 2,500,000 UNIT in Sodium Chlor 0.9% Inj 100 ML IV.SIG SCH (14:00)
[2018-03-13] MEDS ORDERED: fentaNYL 2MCG-Bupiv 0.125% Epi 150 ML EPIDURAL PRN (14:39)
[2018-03-13] MEDS ORDERED: fentaNYL Citrate Inj 100 MCG/2 ML Ampul EPIDURAL ONE (14:39)
[2018-03-13] MEDS ORDERED: Measles/Mumps/Rubella Vaccine Inj 0.5 ML Vial SQ ONE (16:00)
[2018-03-13] MEDS ORDERED: Diphtheria/Tetanus/Pertussis Vaccine Inj 0.5 ML Syringe IM ONE (16:00)
[2018-03-13] MEDS ORDERED: Oxytocin 30 Units/500ml Premix 30 UNITS/500 ML BAG IV.CONT PRN (16:01)
[2018-03-13] MEDS ORDERED: Bisacodyl 10 MG Supp RECTAL PRN (16:01)
[2018-03-13] MEDS ORDERED: Benzocaine 20% Top Spray 60 ML Can TOPICAL PRN (16:01)
[2018-03-13] MEDS ORDERED: Witch Hazel 50%/Glyderin 12.5% 40 Pad Jar RECTAL PRN (16:01)
[2018-03-13] MEDS ORDERED: Zolpidem Tartrate 5 MG Tablet PO PRN (16:01)
--- NOTE | 2018-03-13 16:01 | P.OBDELI ---
Weeks Gestation: 39 Patient Started Active Labor: Yes Medical Induction of Labor: Yes Medical Induction Start Date: 03/13/18 Medical Induction Start Time: 08:00 Artificial Rupture of Membrane: Yes Anesthesia: Epidural Episiotomy: none Vaginal Delivery: Normal Presentation: Occiput anterior Nuchal Cord: None Delayed Cord Clamping (45 sec): Yes Shoulder Dystocia: Suprapubic pressure given, Irlanda maneuver done Placenta: Spontaneous delivery Laceration: Vaginal, 2 deg Repair: Vicryl running Estimated blood loss (mL): 200 : Female score (1 min): 8 score (5 min): 9
[2018-03-13] MEDS: Senna/Docusate Sodium 8.6/50 MG Tablet PO SCH (21:15)
[2018-03-14] MEDS: Acetaminophen 325 MG Tablet PO PRN (03:55)
[2018-03-14] MEDS: Penicillin G Potassium Inj 2,500,000 UNIT in Sodium Chlor 0.9% Inj 100 ML IV.SIG SCH (06:45)
--- NOTE | 2018-03-14 08:12 | P.PNOB ---
Subjective Post day: 1 Interval history: doing well, Objective Vital Signs/I&O: Vital Signs 03/13/18 08:15 03/13/18 09:15 03/13/18 09:17 Temperature 99.0 F Pulse Rate 97 H Respiratory Rate 18 Blood Pressure 140/85 03/13/18 10:20 03/13/18 10:24 03/13/18 10:25 Temperature Pulse Rate 97 H 100 H Respiratory Rate 18 Blood Pressure 128/84 03/13/18 11:17 03/13/18 11:20 03/13/18 12:19 Temperature 98.6 F Pulse Rate 91 H 100 H 98 H Respiratory Rate 18 Blood Pressure 129/84 123/76 03/13/18 12:25 03/13/18 13:35 03/13/18 14:28 Temperature Pulse Rate 103 H 94 H 109 H Respiratory Rate Blood Pressure 128/68 03/13/18 14:42 03/13/18 15:45 03/13/18 16:00 Temperature 98.4 F Pulse Rate 114 H 100 H Respiratory Rate 18 18 Blood Pressure 123/94 H 144/100 H 03/13/18 16:02 03/13/18 16:15 03/13/18 16:16 Temperature Pulse Rate 157 H 105 H Respiratory Rate 18 Blood Pressure 112/66 112/66 03/13/18 16:23 03/13/18 16:32 03/13/18 16:46 Temperature Pulse Rate 115 H 101 H 105 H Respiratory Rate Blood Pressure 120/80 119/64 118/59 L 03/13/18 17:07 03/13/18 18:00 Temperature 98.3 F Pulse Rate 104 H 112 H Respiratory Rate 18 20 Blood Pressure 122/85 108/72 Intake & Output 03/13/18 03/14/18 03/14/18 18:59 06:59 18:59 Intake Total 1000 / 1000 Balance 1000 / 1000 Weight 122.924 kg Intake: IV 1000 / 1000 LR 1000 mL Inj 1,000 ML @ 125 1000 / 1000 mls/hr IV.CONT .Q8H [facility] Rx#: [id number] Result Diagrams: 03/13/18 08:36 03/13/18 08:36 Objective Remarks: GENERAL: Well-nourished, well-developed patient. CARDIOVASCULAR: Regular rate and rhythm without murmurs, gallops, or rubs. RESPIRATORY: Breath sounds equal bilaterally. No accessory muscle use. ABDOMEN/GI: Abdomen soft, non-tender. Fundus: Firm, non-tender at umbilicus. GENITOURINARY: Light to moderate bleeding. EXTREMITIES: No cyanosis or edema, non-tender, without signs of DVT. Medications and IVs: Active Medications Acetaminophen (Tylenol) 650 mg PO Q4H PRN PRN Reason: PAIN SCALE 1 TO 2 Last Admin: 03/14/18 03:55 Dose: 650 mg Al Hydroxide/Mg Hydroxide (Milk Of Magnesia Liq) 30 ml PO Q12H PRN PRN Reason: Mild Constipation Benzocaine (Americaine 20% Top [place]) 1 spray TOPICAL Q4H PRN PRN Reason: For Perineum Discomfort Bisacodyl (Dulcolax Supp) 10 mg RECTAL DAILY PRN PRN Reason: SEVERE CONSITIPATION Calcium Gluconate (Calcium Gluconate Inj) 1 gm IV.PUSH PRN PRN PRN Reason: Magnesium toxicity Citric Acid/Sodium Citrate (Sodium Citrate/Citric Acid Liq) 30 ml PO [employer] TRA[employer] [facility] Stop: 03/17/18 08:59 Ephedrine Sulfate (Ephedrine/Ns Syringe) 10 mg IV.PUSH UNSCH PRN PRN Reason: SEE LABEL COMMENTS Stop: 03/14/18 14:39 Last Admin: 03/13/18 16:11 Dose: 10 mg Fentanyl Citrate (Fentanyl Inj) 50 mcg IV.PUSH Q1H PRN PRN Reason: Pain Scale 3 - 5 Fentanyl Citrate (Fentanyl Inj) 100 mcg IV.PUSH Q1H PRN PRN Reason: PAIN SCALE 6 TO 10 Last Admin: 03/13/18 13:25 Dose: 100 mcg Lactated Ringer's (Lr 1000 Ml Inj) 1,000 mls @ 125 mls/hr IV.CONT .Q8H [facility] Last Admin: 03/13/18 18:30 Dose: 125 mls/hr Lactated Ringer's (Lr 1000 Ml Inj) 1,000 mls @ 75 mls/hr IV.CONT .[id number] [facility] Last Admin: 03/14/18 06:45 Dose: Not Given Sodium Chloride (Ns Inj) 500 mls @ 1,000 mls/hr IV.SIG UNSCH PRN PRN Reason: SEE LABEL COMMENTS Sodium Chloride (Ns Inj) 1,000 mls @ 100 mls/hr IV.CONT .Q10H PRN PRN Reason: SEE LABEL COMMENTS Oxytocin (Pitocin 30 Units/Ns 500 Ml Premix) 30 units in 500 mls @ 2 mls/hr IV.SIG TITRATE PRN; Protocol PRN Reason: For induction of labor Last Admin: 03/13/18 09:38 Dose: 2 milliunit/min, 2 mls/hr Lactated Ringer's (Lr 1000 Ml Inj) 1,000 mls @ 3,000 mls/hr IV.SIG UNSCH PRN PRN Reason: compromise or epidural Penicillin G Potassium 2,500, (000 unit/ Sodium Chloride) 100 mls @ 200 mls/hr IV.SIG Q4H VANDANA Last Admin: 03/14/18 06:45 Dose: Not Given Fentanyl/Bupivacaine/Sodium Chlor (Fentanyl 2 Mcg-Bupiv 0.125% Epi) 150 mls @ 12 mls/hr EPIDURAL PRN PRN PRN Reason: for Labor Pain Last Admin: 03/13/18 14:00 Dose: 12 mls/hr Oxytocin (Pitocin 30 Units/Ns 500 Ml Premix) 30 units in 500 mls @ 100 mls/hr IV.CONT UNSCH PRN PRN Reason: Heavy bleeding Ibuprofen (Motrin) 800 mg PO Q8H PRN PRN Reason: For Cramping Last Admin: 03/14/18 03:55 Dose: 800 mg Lactulose (Lactulose Liq) 30 ml PO DAILY PRN PRN Reason: SEVERE CONSITIPATION Lidocaine HCl (Xylocaine 1% Inj) 0.1 ml I-DERMAL PRN PRN PRN Reason: For IV start Stop: 03/16/18 08:45 Lidocaine HCl (Xylocaine 1% Inj) 10 ml INFILTRATN PRN PRN PRN Reason: For episiotomy repair Stop: 03/15/18 08:45 Mineral Oil (Muri-Lube Oil) 10 ml TOPICAL PRN PRN PRN Reason: PRN perineal massage Miscellaneous Information (Misc Information) 1 each OTHER UNSCH PRN PRN Reason: SEE LABEL COMMENTS Stop: 03/14/18 14:39 Miscellaneous Information (Misc Information) 1 each OTHER UNSCH PRN PRN Reason: SEE LABEL COMMENTS Stop: 03/14/18 14:39 Naloxone HCl (Narcan Inj) 0.1 mg IV.PUSH Q2M PRN PRN Reason: for opiate reversal Naloxone HCl (Narcan Inj) 0.1 mg IV.PUSH Q2M PRN PRN Reason: for opiate reversal Ondansetron HCl (Zofran Inj) 4 mg IV.PUSH Q6H PRN PRN Reason: NAUSEA OR VOMITING Ondansetron HCl (Zofran Odt) 4 mg PO Q6H PRN PRN Reason: NAUSEA OR VOMITING Oxytocin (Pitocin Inj) 20 unit IV.SIG ONCE PRN PRN Reason: For excessive bleeding Stop: 03/14/18 16:00 Senna/Docusate Sodium (Ghazal-Colace) 1 tab PO BID [facility] Last Admin: 03/13/18 21:15 Dose: Not Given Sennosides (Senokot) 17.2 mg PO Q12H PRN PRN Reason: Moderate Constipation Sodium Chloride (Ns Flush) 2 ml IV.FLUSH BID [facility] Last Admin: 03/14/18 06:45 Dose: Not Given Sodium Chloride (Ns Flush) 2 ml IV.FLUSH PRN PRN PRN Reason: FLUSH AFTER USING IV ACCESS Sodium Chloride (Ns Flush) 2 ml IV.FLUSH BID [facility] Last Admin: 03/14/18 06:45 Dose: Not Given Sodium Chloride (Ns Flush) 2 ml IV.FLUSH PRN PRN PRN Reason: FLUSH AFTER USING IV ACCESS Witch Hali/Glycerin (Tucks Pads) 1 applicatio RECTAL QID PRN PRN Reason: HEMORRHOIDS Zolpidem Tartrate (Ambien) 5 mg PO HS PRN PRN Reason: SLEEP Assessment and Plan - Diagnosis (1) Vaginal delivery Code(s): O46.90 - Antepartum hemorrhage, unspecified, unspecified trimester Status: Acute - Plan s/p PPD#1, h/o chronic HTN, GBS+ d/c home in am rto 2 wks Discharge Planning: routine - Attending Attestation pt seen by me
[2018-03-14] MEDS: Senna/Docusate Sodium 8.6/50 MG Tablet PO SCH ×2 (12:19→21:15)
[2018-03-15] MEDS: Acetaminophen 325 MG Tablet PO PRN ×2 (03:06→14:04)
--- NOTE | 2018-03-15 09:04 | P.PNOB ---
Subjective Post day: 2 Interval history: PPD#2; doing weel, stable, plan discharge home Objective Vital Signs/I&O: Vital Signs 03/14/18 20:00 Temperature 98.2 F Pulse Rate 86 Respiratory Rate 20 Blood Pressure 124/68 Result Diagrams: 03/13/18 08:36 03/13/18 08:36 Objective Remarks: GENERAL: Well-nourished, well-developed patient. CARDIOVASCULAR: Regular rate and rhythm without murmurs, gallops, or rubs. RESPIRATORY: Breath sounds equal bilaterally. No accessory muscle use. ABDOMEN/GI: Abdomen soft, non-tender. Fundus: Firm, non-tender at umbilicus. GENITOURINARY: Light to moderate bleeding. EXTREMITIES: No cyanosis or edema, non-tender, without signs of DVT. Medications and IVs: Active Medications Acetaminophen (Tylenol) 650 mg PO Q4H PRN PRN Reason: PAIN SCALE 1 TO 2 Last Admin: 03/15/18 03:06 Dose: 650 mg Al Hydroxide/Mg Hydroxide (Milk Of Magnesia Liq) 30 ml PO Q12H PRN PRN Reason: Mild Constipation Benzocaine (Americaine 20% Top [place]) 1 spray TOPICAL Q4H PRN PRN Reason: For Perineum Discomfort Bisacodyl (Dulcolax Supp) 10 mg RECTAL DAILY PRN PRN Reason: SEVERE CONSITIPATION Calcium Gluconate (Calcium Gluconate Inj) 1 gm IV.PUSH PRN PRN PRN Reason: Magnesium toxicity Citric Acid/Sodium Citrate (Sodium Citrate/Citric Acid Liq) 30 ml PO [employer] WORK[employer] [facility] Stop: 03/17/18 08:59 Fentanyl Citrate (Fentanyl Inj) 50 mcg IV.PUSH Q1H PRN PRN Reason: Pain Scale 3 - 5 Fentanyl Citrate (Fentanyl Inj) 100 mcg IV.PUSH Q1H PRN PRN Reason: PAIN SCALE 6 TO 10 Last Admin: 03/13/18 13:25 Dose: 100 mcg Lactated Ringer's (Lr 1000 Ml Inj) 1,000 mls @ 125 mls/hr IV.CONT .Q8H [facility] Last Admin: 03/14/18 12:17 Dose: Not Given Lactated Ringer's (Lr 1000 Ml Inj) 1,000 mls @ 75 mls/hr IV.CONT .[id number] [facility] Last Admin: 03/14/18 12:19 Dose: Not Given Sodium Chloride (Ns Inj) 500 mls @ 1,000 mls/hr IV.SIG UNSCH PRN PRN Reason: SEE LABEL COMMENTS Sodium Chloride (Ns Inj) 1,000 mls @ 100 mls/hr IV.CONT .Q10H PRN PRN Reason: SEE LABEL COMMENTS Oxytocin (Pitocin 30 Units/Ns 500 Ml Premix) 30 units in 500 mls @ 2 mls/hr IV.SIG TITRATE PRN; Protocol PRN Reason: For induction of labor Last Admin: 03/13/18 09:38 Dose: 2 milliunit/min, 2 mls/hr Lactated Ringer's (Lr 1000 Ml Inj) 1,000 mls @ 3,000 mls/hr IV.SIG UNSCH PRN PRN Reason: compromise or epidural Fentanyl/Bupivacaine/Sodium Chlor (Fentanyl 2 Mcg-Bupiv 0.125% Epi) 150 mls @ 12 mls/hr EPIDURAL PRN PRN PRN Reason: for Labor Pain Last Admin: 03/13/18 14:00 Dose: 12 mls/hr Oxytocin (Pitocin 30 Units/Ns 500 Ml Premix) 30 units in 500 mls @ 100 mls/hr IV.CONT UNSCH PRN PRN Reason: Heavy bleeding Ibuprofen (Motrin) 800 mg PO Q8H PRN PRN Reason: For Cramping Last Admin: 03/15/18 03:06 Dose: 800 mg Lactulose (Lactulose Liq) 30 ml PO DAILY PRN PRN Reason: SEVERE CONSITIPATION Lidocaine HCl (Xylocaine 1% Inj) 0.1 ml I-DERMAL PRN PRN PRN Reason: For IV start Stop: 03/16/18 08:45 Mineral Oil (Muri-Lube Oil) 10 ml TOPICAL PRN PRN PRN Reason: PRN perineal massage Naloxone HCl (Narcan Inj) 0.1 mg IV.PUSH Q2M PRN PRN Reason: for opiate reversal Naloxone HCl (Narcan Inj) 0.1 mg IV.PUSH Q2M PRN PRN Reason: for opiate reversal Ondansetron HCl (Zofran Inj) 4 mg IV.PUSH Q6H PRN PRN Reason: NAUSEA OR VOMITING Ondansetron HCl (Zofran Odt) 4 mg PO Q6H PRN PRN Reason: NAUSEA OR VOMITING Senna/Docusate Sodium (Ghazal-Colace) 1 tab PO BID [facility] Last Admin: 03/14/18 21:15 Dose: Not Given Sennosides (Senokot) 17.2 mg PO Q12H PRN PRN Reason: Moderate Constipation Sodium Chloride (Ns Flush) 2 ml IV.FLUSH BID [facility] Last Admin: 03/14/18 21:15 Dose: Not Given Sodium Chloride (Ns Flush) 2 ml IV.FLUSH PRN PRN PRN Reason: FLUSH AFTER USING IV ACCESS Sodium Chloride (Ns Flush) 2 ml IV.FLUSH BID [facility] Last Admin: 03/14/18 21:15 Dose: Not Given Sodium Chloride (Ns Flush) 2 ml IV.FLUSH PRN PRN PRN Reason: FLUSH AFTER USING IV ACCESS Witch Hali/Glycerin (Tucks Pads) 1 applicatio RECTAL QID PRN PRN Reason: HEMORRHOIDS Zolpidem Tartrate (Ambien) 5 mg PO HS PRN PRN Reason: SLEEP Assessment and Plan - Diagnosis (1) Vaginal delivery Code(s): O46.90 - Antepartum hemorrhage, unspecified, unspecified trimester Status: Acute - Plan s/p PPD#2, h/o chronic HTN, GBS+ d/c home today rto 2 wks Discharge Planning: routine
== END 2018-03-15 17:35 | disposition home or self-care (01) | DRG 806 ==
LOC: H2E 07:59 → H1EA 17:52
PROVIDERS: ADMIT Obstetrics & Gynecology; ATTEND Obstetrics & Gynecology
CPT/HCPCS: 59025; 80053; 80101; 80301; 80307; 81001; 82570; 84155; 84157; 85025; 86850; 86900; 86901; 99283; G0431; G0479; G0481; G0483; J2540; J2590; J3010; J7120